=== PATIENT | female | born 1995 | race Caucasian/White ===

== ENCOUNTER 2020-04-29 10:07 | Outpatient (CLI) | payer BC, MEDICAID, SELFPAY ==
[2020-04-29 11:41] LABS: Total Protein 24 Hour Urine 159.2 mg/24HR (0-150); Total Volume, Urine 3184 mL
--- NOTE | 2020-04-30 08:22 | PC.NURSE ---
LAB RESULTS GIVEN TO DR. CHANEL.
== END 2020-04-29 10:08 | disposition home or self-care (01) ==
LOC: LAB 10:11
PROVIDERS: Visit Provider Family Medicine
DX: I10 Essential (primary) hypertension (principal)
CPT/HCPCS: 84156

== ENCOUNTER 2020-05-05 07:38 | Outpatient (CLI) | payer BC, MEDICAID, SELFPAY ==
[2020-05-05 07:48] VITALS: BP 135/69; PULSE 105
[2020-05-05 07:50] VITALS: RESP 17; TEMP 36.6
[2020-05-05 07:51] VITALS: BMI 38.2
[2020-05-05 07:58] VITALS: BP 127/66; PULSE 104
[2020-05-05 08:09] VITALS: BP 118/61; PULSE 107
[2020-05-05 08:19] VITALS: BP 119/66; PULSE 101
[2020-05-05 08:25] VITALS: BP 119/66; PULSE 101
== END 2020-05-05 08:25 | disposition home or self-care (01) ==
LOC: OPOB 07:41 → OBGYN 07:42
PROVIDERS: Visit Provider Family Medicine
DX: O13.9 Gestational [pregnancy-induced] hypertension without significant proteinuria, unspecified trimester (principal); Z3A.00 Weeks of gestation of pregnancy not specified
CPT/HCPCS: 59025; 99211

== ENCOUNTER 2020-05-09 07:18 | Outpatient (CLI) | payer BC, MEDICAID, SELFPAY ==
[2020-05-09] VITALS (10 sets, daily range): BP systolic 119–134; BP diastolic 57–76; PULSE 86–107; RESP 17; TEMP 36.7; BMI 38.2
--- NOTE | 2020-05-09 07:39 | US_ITS ---
WS: [id number] BIOPHYSICAL PROFILE AND LIMITED OB. HISTORY: BPP and SANDY, gestational hypertension COMPARISON: 04/27/2019 Presentation: Vertex. Cervix: Closed and normal length. Placenta: Anterior, no previa or abruption. Grade: 1 HEART: FHR of 131BPM. Biophysical profile: Parameters are as follows: Breathin Movement: 2 Tone: 2 Fluid volume: 2 Amniotic fluid index: 20.5 cm. Largest vertical pocket 6.6 cm. 1. Biophysical profile score: 8/8. 2. Normal amniotic fluid index. US/US OB F/U w BPP wo NST IMPRESSION:
== END 2020-05-09 08:50 | disposition home or self-care (01) ==
LOC: OPOB 07:22 → OBGYN 07:23
PROVIDERS: Visit Provider Family Medicine
DX: O13.9 Gestational [pregnancy-induced] hypertension without significant proteinuria, unspecified trimester (principal); Z3A.00 Weeks of gestation of pregnancy not specified
CPT/HCPCS: 59025; 76816; 76819; 99211

== ENCOUNTER 2020-05-12 08:05 | Outpatient (CLI) | payer BC, MEDICAID, SELFPAY ==
[2020-05-12 08:49] VITALS: BMI 38.5
== END 2020-05-12 08:45 | disposition home or self-care (01) ==
LOC: OPOB 08:12 → OBGYN 08:13
PROVIDERS: Visit Provider Family Medicine
DX: O13.9 Gestational [pregnancy-induced] hypertension without significant proteinuria, unspecified trimester (principal); Z3A.00 Weeks of gestation of pregnancy not specified
CPT/HCPCS: 59025; 99211

== ENCOUNTER 2020-05-16 08:00 | Outpatient (CLI) | payer BC, MEDICAID, SELFPAY ==
--- NOTE | 2020-05-16 08:19 | US_ITS ---
WS: [id number] ULTRASOUND OB LIMITED TECHNIQUE: Limited ultrasound examination of the fetus. CLINICAL INFORMATION: PRIOR ; ELEVATED BLOOD PRESSURE COMPARISON: May 09, 2020 FINDINGS: Cervix measures 4.3 cm Single interuterine gestation. presentation is vertex Placental location is anterior. Placenta grade: 0. heart rate 138 BPM. Normal SANDY Biophysical profile 8 out of 8. breathin movement: 2 tone: 2 Amniotic fluid: 2 IMPRESSION Normal biophysical profile 8 out of 8
[2020-05-16 08:21] VITALS: BMI 38.0
[2020-05-16 08:59] VITALS: BP 123/69; BP 124/68; BP 140/84; PULSE 104; PULSE 112; PULSE 96
--- NOTE | 2020-05-16 09:02 | PC.NURSE ---
VITALS PT ACCOUNT WAS NOT LINKED WITH [facility] SO VITALS JUST SHOWING THEY WERE ALL AT THE SAME TIME VITALS STARTED AT 0816 140/84 THRU CURRENT B/P OF 124/68 AT 0850.
[2020-05-16 09:05] VITALS: BP 113/57; PULSE 104
--- NOTE | 2020-05-16 09:17 | PC.NURSE ---
CONCERNING LAST NOTE SYSTEM NOW CORRECT WITH TIMES.
[2020-05-16 09:20] VITALS: BP 116/62; PULSE 102
[2020-05-16 09:35] VITALS: BP 118/59; PULSE 101
[2020-05-16] MEDS: betamethasone susp 6 mg/mL 5 mL 12 MG IM (09:56)
[2020-05-16 10:36] VITALS: BP 118/59; PULSE 101; RESP 16
== END 2020-05-16 09:50 | disposition home or self-care (01) ==
LOC: OPOB 08:09 → OBGYN 08:10
PROVIDERS: Visit Provider Family Medicine
DX: O26.899 Other specified pregnancy related conditions, unspecified trimester (principal); Z3A.00 Weeks of gestation of pregnancy not specified; R10.9 Unspecified abdominal pain
CPT/HCPCS: 59025; 76819; 96372; 99211; J0702

== ENCOUNTER 2020-05-17 09:49 | Outpatient (CLI) | payer BC, MEDICAID, SELFPAY ==
[2020-05-17 10:13] VITALS: BP 125/79; PULSE 93; RESP 16; TEMP 36.4; BMI 38.0
[2020-05-17 10:14] VITALS: BP 125/79; PULSE 93
[2020-05-17 10:26] VITALS: BP 116/66; PULSE 100
[2020-05-17 10:41] VITALS: BP 121/78; PULSE 102
[2020-05-17] MEDS: betamethasone susp 6 mg/mL 5 mL 12 MG IM (10:47)
[2020-05-17 11:15] VITALS: BP 121/78; PULSE 102; RESP 16; TEMP 36.4
== END 2020-05-17 10:50 | disposition home or self-care (01) ==
LOC: OPOB 10:00 → OBGYN 05-18 08:12
PROVIDERS: Visit Provider Family Medicine
DX: O26.899 Other specified pregnancy related conditions, unspecified trimester (principal); Z3A.00 Weeks of gestation of pregnancy not specified
CPT/HCPCS: 59025; 96372; 99211; J0702

== ENCOUNTER 2020-05-19 09:00 | Outpatient (CLI) | payer BC, MEDICAID, SELFPAY ==
[2020-05-19] VITALS (12 sets, daily range): BP systolic 102–147; BP diastolic 51–81; PULSE 87–107; RESP 16; TEMP 36.6; BMI 38.2
[2020-05-19 09:36] LABS: Basophils % 0.2 %; Eosinophils % 0.3 %; Hematocrit 37.1 % (37.0-47.0); Hemoglobin 11.7 g/dL (11.5-15.3); Lymphocytes # 2.3 10^3/uL (0.8-4.8); Lymphocytes % 19.2 %; Mean Corpuscular HGB Conc 31.5 g/dL (30.0-36.0); Mean Corpuscular Hemoglobin 28.7 pg (28.0-34.0); Mean Corpuscular Volume 90.9 fL (81-99); Monocytes # 0.6 10^3/uL (0.2-0.9); Monocytes % 4.7 %; Neutrophils # 8.95 10^3/uL (1.8-7.7); Neutrophils % 74.6 %; Nucleated Red Blood Cells % 0 %; Platelet Count 230 10^3/cmm (130-400); Red Blood Count 4.08 10^6/uL (4.1-5.3); Red Cell Distribution Width 13.9 % (12.1-15.1)
[2020-05-19 09:55] LABS: Alanine Aminotransferase 30 U/L (0-33); Albumin Level 3.7 g/dL (3.5-5.2); Alkaline Phosphatase 80 IU/L (35-105); Aspartate Amino Transferase 20 U/L (0-32); Blood Urea Nitrogen 6 mg/dL (6-20); Calcium 8.3 mg/dL (8.5-10.5); Carbon Dioxide 20 mmol/L (22-29); Chloride 103 mmol/L (98-107); Glomerular Filtration Rate 199.6 mL/min (90-130); Glucose 138 mg/dL (65-115); Osmolality Calculated 280 mOsm/kg (285-295); Sodium 136 mmol/L (136-145); Total Bilirubin 0.2 mg/dL (0.15-1.2); Total Protein 6.7 g/dL (6.6-8.7); Uric Acid 3.4 mg/dL (2.4-5.7)
[2020-05-19 09:56] LABS: Anion Gap 16.7 (5-19); Potassium 3.7 mmol/L (3.5-5.1)
== END 2020-05-19 12:05 | disposition home or self-care (01) ==
LOC: OPOB 09:08 → OBGYN 09:09
PROVIDERS: Visit Provider Family Medicine
DX: O26.899 Other specified pregnancy related conditions, unspecified trimester (principal); Z3A.00 Weeks of gestation of pregnancy not specified; O16.9 Unspecified maternal hypertension, unspecified trimester
CPT/HCPCS: 36415; 59025; 80053; 84550; 85025; 99211

== ENCOUNTER 2020-05-23 08:11 | Outpatient (CLI) | payer BC, MEDICAID, SELFPAY ==
--- NOTE | 2020-05-23 08:23 | US_ITS ---
NOTE: Report was unsigned for reason: Order was edited. Original Signature date and time was: 05/23/2020 0917 WS: [id number] BIOPHYSICAL PROFILE AMNIOTIC FLUID HISTORY: Umbilical artery doppler, blood flow COMPARISON: 05/16/2020 Cardiac activity: 141 bpm. Cervix: closed. Placenta: Anterior, no previa. Placenta grade: 2 Parameters are as follows: Breathin Movement: 2 Tone: 2 Fluid volume: 2 UMBILICAL ARTERY DOPPLER Sampling was performed at the placental insertion, insertion and free- floating loops. At the umbilical insertion site the SD ratio was 2.3 with a resistivity index of 0.56. Waveform analysis at multiple sites: Normal systolic and diastolic velocities. Diastolic velocity remains above the baseline. Normal upstroke of waveform. SD ratios: SD ratios range from 2.1-2.6. Mean of 2.29. Resistivity indices: 0.52 -0.61. Mean of 0.56 [facility] US/US OB BPP wo NST [id number] IMPRESSION: 1. Biophysical profile score: 8/8. 2. Normal umbilical artery Doppler. SD ratio and waveforms are normal.
[2020-05-23 08:24] VITALS: RESP 18; TEMP 36.8
[2020-05-23 08:26] VITALS: BMI 38.8
[2020-05-23 09:21] VITALS: BP 127/62; PULSE 94
[2020-05-23 09:40] VITALS: BP 141/62; PULSE 88; PULSE 98; RESP 18
== END 2020-05-23 10:00 | disposition home or self-care (01) ==
LOC: OPOB 08:12 → OBGYN 08:13
PROVIDERS: Visit Provider Family Medicine
DX: O26.899 Other specified pregnancy related conditions, unspecified trimester (principal); R10.9 Unspecified abdominal pain; Z3A.00 Weeks of gestation of pregnancy not specified
CPT/HCPCS: 59025; 76819; 76820

== ENCOUNTER 2020-05-26 07:25 | Outpatient (CLI) | payer MEDICAID, SELFPAY ==
--- NOTE | 2020-05-26 07:46 | US_ITS ---
WS: [id number] BIOPHYSICAL PROFILE HISTORY: well-being, HISTORY OF LOSS COMPARISON: 05/23/2020 Cardiac activity: 133 bpm. Cervix: closed. Placenta: Anterior, no previa or abruption. Placenta grade: 1 Parameters are as follows: Breathin Movement: 2 Tone: 2 Fluid volume: 2 Largest single vertical pocket of amniotic fluid is 3.1 cm. US/US OB BPP wo NST [id number] IMPRESSION: 1. Biophysical profile score: 8/8. 2. Normal cardiac activity.
[2020-05-26 08:00] VITALS: BMI 36.8
[2020-05-26 08:10] VITALS: BP 126/66; PULSE 100; RESP 18
== END 2020-05-26 07:26 | disposition home or self-care (01) ==
LOC: OPOB 07:44
PROVIDERS: Visit Provider Family Medicine
DX: O26.899 Other specified pregnancy related conditions, unspecified trimester (principal); Z3A.00 Weeks of gestation of pregnancy not specified; R10.9 Unspecified abdominal pain
CPT/HCPCS: 59025; 76819; 99211

== ENCOUNTER 2020-05-30 10:00 | Observation (INO) | payer MEDICAID, SELFPAY ==
[2020-05-30] VITALS (28 sets, daily range): BP systolic 0–123; BP diastolic 0–70; PULSE 88–112; RESP 16; TEMP 36.6–36.8; BMI 38.8
--- NOTE | 2020-05-30 08:18 | US_ITS ---
WS: [id number] ULTRASOUND OB LIMITED TECHNIQUE: Limited ultrasound examination of the fetus. CLINICAL INFORMATION: HISTORY OF COMPARISON: May 26, 2020 FINDINGS: Cervix measures 4.5 cm Single interuterine gestation. presentation is vertex Placental location is anterior. Placenta grade: 0. heart rate 144 BPM. Normal SANDY 19.1 cm UMBILICAL ARTERY DOPPLER Sampling was performed at the placental insertion, insertion and free- floating loops. Normal umbilical artery velocities at the placental and mid artery. Systolic/diastolic ratio at the c ord insertion. Increased S/D ratio and RI since May 23, 2020 at the cord insertion. S/D ratio ranges from 2.2-3.5 RI ranges from 0.5 -0.7 Biophysical profile 8 out of 8. breathin movement: 2 tone: 2 Amniotic fluid: 2 IMPRESSION 1. Normal biophysical profile 8 out of 8 2. Normal SANDY. 3. Normal umbilical artery velocities at the placental and mid artery. 4. Increased RI and systolic/diastolic ratio at the cord insertion. This is increased slightly since May 23, 2020. This can be seen with growth restricted fetuses and early indicators of di stress. Recommend clinical correlation and short interval follow-up.
[2020-05-30 11:02] LABS: Basophils % 0.1 %; Eosinophils # 0.1 10^3/uL (0.0-0.8); Eosinophils % 0.6 %; Hematocrit 37.7 % (37.0-47.0); Hemoglobin 11.9 g/dL (11.5-15.3); Lymphocytes # 1.8 10^3/uL (0.8-4.8); Lymphocytes % 18.6 %; Mean Corpuscular HGB Conc 31.6 g/dL (30.0-36.0); Mean Corpuscular Hemoglobin 28.5 pg (28.0-34.0); Mean Corpuscular Volume 90.2 fL (81-99); Mean Platelet Volume 9.7 fL (7.4-10.4); Monocytes # 0.6 10^3/uL (0.2-0.9); Monocytes % 5.6 %; Neutrophils # 7.28 10^3/uL (1.8-7.7); Neutrophils % 74.6 %; Nucleated Red Blood Cells % 0 %; Platelet Count 201 10^3/cmm (130-400); Red Blood Count 4.18 10^6/uL (4.1-5.3); Red Cell Distribution Width 14.2 % (12.1-15.1); White Blood Count 9.8 10^3/uL (4.0-10.0)
[2020-05-30 11:21] LABS: Alanine Aminotransferase 11 U/L (0-33); Albumin Level 3.5 g/dL (3.5-5.2); Alkaline Phosphatase 94 IU/L (35-105); Anion Gap 13.9 (5-19); Aspartate Amino Transferase 13 U/L (0-32); Blood Urea Nitrogen 4 mg/dL (6-20); Calcium 8.9 mg/dL (8.5-10.5); Carbon Dioxide 21 mmol/L (22-29); Chloride 105 mmol/L (98-107); Globulin 2.9 g/dL (1.3-4.6); Glomerular Filtration Rate 199.6 mL/min (90-130); Glucose 84 mg/dL (65-115); Osmolality Calculated 277 mOsm/kg (285-295); Potassium 3.9 mmol/L (3.5-5.1); Sodium 136 mmol/L (136-145); Total Bilirubin 0.2 mg/dL (0.15-1.2); Total Protein 6.4 g/dL (6.6-8.7); Uric Acid 3.7 mg/dL (2.4-5.7)
--- NOTE | 2020-05-30 19:30 | PC.NURSE ---
Dr. Hurd at nurses station, strip reviewed, orders reviewed. orders for continuous monitoring throughout the night, BP every hour and all other vitals every 4 hours.
--- NOTE | 2020-05-30 19:56 | PC.NURSE ---
Dr. Hurd performing physical exam at this time
--- NOTE | 2020-05-30 20:07 | PM.HP ---
Providers/Chief Complaint Admitting Physician: Miguel Hurd MD Chief Complaint: gestational hypertension History of Present Illness Brigida aSles is a 24 year old at 34.4 weeks gestation by LMP consistent with 9-week ultrasound. Her is complicated by history of preeclampsia with severe features at 33 and 36 weeks gestation and prior pregnancies, chronic hypertension, history of IUFD at 33.3 weeks gestation, now with gestational hypertension. The patient has been followed by perinatology at [facility]. The patient is getting twice weekly NSTs with biophysical profile, SANDY and umbilical artery flow measurements. The patient has been having headaches that she rates a 3 out of 10 for the last 3 to 4 weeks. She has been seeing spots intermittently. The patient has brought these up to maternal- medicine in [place] and they recommended follow-up with them in 3 weeks. I have been seeing the patient in clinic twice a week and her symptoms seem to gradually be getting worse with increased swelling, brisk reflexes and more frequent symptoms. Her blood pressures are currently stable but have been getting into the 120/100 range at home and 140s over 80s range at different measurements. The patient had her ultrasound and NST done today and had a reactive NST with a biophysical profile of 8 out of 8 and SANDY of 19. Unfortunately the umbilical artery SD ratio is increasing and increased from 2.6 to 3.5 and the index increased from 0.61 to 0.7 over the last week. Because of this the patient will be admitted for further monitoring. Review of Systems Narrative: The patient currently denies any chest pains, shortness of breath, nausea, vomiting, diarrhea, constipation, fever. She admits to headache, seeing flashes of lights, swelling. Medications/Allergies Home Medications Medication Instructions Recorded Confirmed Last Taken Type aspirin 81 mg PO DAILY 05/05/20 05/30/20 05/29/20 20:00 History vit [id number] 1 tab PO DAILY 05/05/20 05/30/20 05/29/20 20:00 History [ Vitamin] labetalol 50 mg PO DAILY 05/09/20 05/12/20 05/07/20 09:00 History Allergies Allergy/AdvReac Type Severity Reaction Status Date / Time No Known Allergies Allergy Verified 05/17/20 10:21 PFSH Acute PFSH: Medical History (Updated 09/08/20 @ 20:20 by Miguel Hurd MD) History of stillbirth Surgical History (Updated 05/30/20 @ 20:20 by Miguel Hurd MD) History of appendectomy History of tonsillectomy and adenoidectomy Hx of cholecystectomy Previous section Female Reproductive History: : 3 Vitals/I&O/Wt Last Vital Signs Temp 98.2 F 05/30/20 10:12 Pulse 112 H 05/30/20 19:36 BP 118/70 05/30/20 19:36 Weight last 48 hrs Weight 199 lb Physical Exam Narrative: EXAM NARRATIVE: General: Alert and oriented x3 Eyes: Pupils equal round and reactive to light and accommodation Mouth: Mucous membranes moist, pharynx non-erythematous Cardiac: Regular rate and rhythm without murmurs Lungs: Clear to auscultation bilaterally without wheezes, crackles or rhonchi Abdomen: Soft, non-tender, fundus consistent with gestational age Extremities: Trace edema in the bilateral lower extremities Neuro: Brisk bilateral deep tendon reflexes at the knee Data : 05/30/20 10:44 05/30/20 10:44 A&P Assessment and plan (1) Gestational hypertension: Status: Acute (2) Intrauterine : Status: Acute Additional A&P Information The patient is currently under observation secondary to a high SD ratio and resistive index in the umbilical artery blood flow that is increased from her prior ultrasound 1 week ago. This is concerning for an increased risk to the and the patient will be observed with monitoring overnight. We will also watch the patient's blood pressure throughout the evening as well. We will recheck the ultrasound in the morning to see if the indices are staying similar to today's evaluation. If they are, we may have to consider transfer to [place] versus inpatient monitoring until delivery. If the blood flow has absent diastolic flow or reverse diastolic flow, then delivery will need to take place right away. The patient did drop off a 24-hour urine protein at our office earlier today and we will get the results tomorrow evening. Her last 24-hour urine protein was 1 week ago and was 180. I spoke with the patient regarding the above and she is in agreement with the current plan of care. All questions were answered. Attestations Medical Necessity Statement*: The patient is currently here under observation for the above issues. Depending on further testing we will see if her status needs to be changed inpatient or not. Coding Level of Care Code Acute Software Quality Assurance Analyst for Chg Fwd Diagnoses Gestational hypertension O13.9 Intrauterine Z34.90
[2020-05-31] VITALS (14 sets, daily range): BP systolic 0–134; BP diastolic 0–72; PULSE 85–109; RESP 15–16; TEMP 36.6–36.9
[2020-05-31 03:46] LABS: Coronavirus Lab Test PTC Negative
--- NOTE | 2020-05-31 06:20 | PC.NURSE ---
oxygen therapy technician at bedside, monitors disconnected.
--- NOTE | 2020-05-31 07:00 | US_ITS ---
WS: [id number] ULTRASOUND OB LIMITED TECHNIQUE: Limited ultrasound examination of the fetus. CLINICAL INFORMATION: Elevated umbilical artery index COMPARISON: May 30, 2020 FINDINGS: Cervix not well visualized Single interuterine gestation. presentation is vertex Placental location is anterior. Placenta grade: 0. heart rate 129 BPM. Normal SANDY Biophysical profile 8 out of 8. breathin movement: 2 tone: 2 Amniotic fluid: 2 Umbilical artery systolic/diastolic ratio at placenta 2.1 and 2.0. Mid cord 2.2 and 2.13 Cord insertion 2.2 and 2.8 IMPRESSION 1. Normal biophysical profile 8 out of 8 2. Improved umbilical artery indices compared to earlier today
--- NOTE | 2020-05-31 08:46 | PM.DCS ---
Discharge Providers Date of Admission: 05/30/20 10:00 Date of Discharge: May 31, 2020 Attending Provider at Admission: Miguel Hurd MD Attending Provider at Discharge: Miguel Hurd MD Primary Care Provider: DOCTOR NOT ON FILE Diagnoses at Discharge Discharge Diagnosis (1) Gestational hypertension: Status: Acute (2) Intrauterine : Status: Acute Reason for Visit Reason for Visit: gestational hypertension Hospital Course Hospital Course: Brigida Sales is a 24 year old at 34.5 weeks gestation by LMP consistent with 9-week ultrasound. Her is complicated by history of preeclampsia with severe features at 33 and 36 weeks gestation and prior pregnancies, chronic hypertension, history of IUFD at 33.3 weeks gestation, now with gestational hypertension and borderline SD ratio. The patient has been followed by perinatology at [facility]. The patient is getting twice weekly NSTs with biophysical profile, SANDY and umbilical artery flow measurements. The patient has been having headaches that she rates a 3 out of 10 for the last 3 to 4 weeks. She has been seeing spots intermittently. The patient has brought these up to maternal- medicine in [place] and they recommended follow-up with them in 3 weeks. I have been seeing the patient in clinic twice a week and her symptoms seem to gradually be getting worse with increased swelling, brisk reflexes and more frequent symptoms. Her blood pressures are currently stable but have been getting into the 120/100 range at home and 140s over 80s range at different measurements. The patient had her ultrasound and NST done today and had a reactive NST with a biophysical profile of 8 out of 8 and SANDY of 19. Unfortunately the umbilical artery SD ratio is increasing and increased from 2.6 to 3.5 and the index increased from 0.61 to 0.7 over the last week. Because of this the patient will be admitted for further monitoring. The patient's blood pressure throughout her stay was in the normal range with an occasional blood pressure in 140/80 range. The patient is currently no longer seeing spots. Her headache is stable at 3 out of 10. The patient had a repeat ultrasound of the umbilical artery and the SD ratio has improved as has the resistive index. I had a lengthy discussion with the patient that she needs to be on bedrest at home and we will have her return for a repeat ultrasound tomorrow and Friday. If the SD ratio a resistive index is going up above 3 again, we may need to consider readmitting the patient. I given the patient the option of staying for the next few days to monitor versus daily ultrasounds and she prefers to go home since the blood pressures and heart tones have look good. All questions were answered. Physical Exam Narrative: EXAM NARRATIVE: General: Alert and oriented x3 Eyes: Pupils equal round and reactive to light and accommodation Mouth: Mucous membranes moist, pharynx non-erythematous Cardiac: Regular rate and rhythm without murmurs Lungs: Clear to auscultation bilaterally without wheezes, crackles or rhonchi Abdomen: Soft, non-tender, fundus consistent with gestational age Extremities: Trace edema in the bilateral lower extremities Neuro: Brisk bilateral deep tendon reflexes at the knee Discharge Data Data Completed and Pending: Completed Studies During Hospitalization Category Date Time Status US OB lm w fetalB PP woNST &umb Rout ine Ultrasound 05/31/20 07:00 Completed US OB lm w fetalB PP woNST &umb Urge nt Ultrasound 05/30/20 08:18 Completed Labs from last 24 hours 05/30/20 05/30/20 05/30/20 11:05 10:44 10:44 WBC 9.8 RBC 4.18 Hgb 11.9 Hct 37.7 MCV 90.2 MCH 28.5 MCHC 31.6 RDW 14.2 Plt Count 201 MPV 9.7 Neut % (Auto) 74.6 Lymph % (Auto) 18.6 Starke % (Auto) 5.6 Eos % (Auto) 0.6 Baso % (Auto) 0.1 Neut # (Auto) 7.28 Lymph # (Auto) 1.8 Starke # (Auto) 0.6 Eos # (Auto) 0.1 Baso # (Auto) 0.0 Nucleated RBC % (a uto) 0 Nucleated RBCs # 0.0 Sodium 136 Potassium 3.9 Chloride 105 Carbon Dioxide 21 L Anion Gap 13.9 BUN 4 L Creatinine 0.4 L GFR Calculation 199.6 H Glucose 84 Calculated Osmolal ity 277 L Uric Acid 3.7 Calcium 8.9 Total Bilirubin 0.2 AST 13 ALT 11 Alkaline Phosphata se 94 Total Protein 6.4 L Albumin 3.5 Globulin 2.9 Nasal/Oral COVID-1 9 PCR Negative Vitals: Last Vital Signs Temp 97.9 F 05/31/20 07:20 Pulse 109 H 05/31/20 08:18 Resp 16 05/31/20 07:20 BP 114/57 05/31/20 08:18 Discharge Plan Discharge Patient Disposition: Home Condition: Stable Prescriptions: Continued aspirin 81 mg Tablet,Delayed Release (Dr/Ec) 81 mg PO DAILY RF: 0 Vitamin 27 mg iron- 800 mcg Tablet 1 tab PO DAILY RF: 0 Discontinued labetalol 100 mg Tablet 50 mg PO DAILY RF: 0 Discharge Orders: Discharge Order (Routine); Ordered 05/31/20 Ordered By: Miguel Hurd Referrals: Miguel Hurd MD [Physician] - 06/02/20 (As scheduled) Discharge Diet: Regular Discharge Activity: Limit activity as instructed and Bedrest Activity Restrictions/Additional Instructions: If you have any concern that the baby is not moving like they should be or have any other concerns regarding , please return to OB right away. Print Language: Mongolian Discharge Date/Time: 05/31/20 09:24 Discharge Attestations Time Spent in Discharge Care*: greater than 30 min Quality Metrics Clinical Quality Measures During this hospital stay, did patient experience: None Coding Level of Care Code Acute Rehab Rn for Chg Fwd Diagnoses Gestational hypertension O13.9 Intrauterine Z34.90
== END 2020-05-31 09:24 | disposition home or self-care (01) ==
LOC: OBGYN 05-31 08:06 → OPOB 05-31 08:31
PROVIDERS: Admitting Provider Family Medicine; Visit Provider Family Medicine
DX: O13.9 Gestational [pregnancy-induced] hypertension without significant proteinuria, unspecified trimester (principal); Z3A.00 Weeks of gestation of pregnancy not specified
CPT/HCPCS: 12345; 59025; 76815; 76819; 76820; 80053; 84550; 85025; 87635; 99211; G0378

== ENCOUNTER 2020-06-01 07:59 | Outpatient (CLI) | payer MEDICAID, SELFPAY ==
--- NOTE | 2020-06-01 08:07 | US_ITS ---
WS: [id number] OB ultrasound for biophysical profile, 06/01/2020 Clinical Data: Gestational Hypertension Comparison: OB ultrasound, 05/31/2020 Findings: There is a single intrauterine in the vertex presentation. The heart rate is 133 beat s per minute. The cervical length is 5.04 cm and it is closed. The placenta is anterior. The biophysical profile is 8 of 8 with normal scores for breathing, movement, posture and tone and amniotic fluid volume. The umbilical Doppler SD ratio is 2.76 at the placenta, 2.57 at the mid cord, and 2.46 at the cord in sertion. US/US OB lm w fetalBPP woNST &umb Impression: 1. Single intrauterine in vertex presentation. 2. Biophysical profile 8 of 8. 3. heart rate 133 beats per minute.
[2020-06-01 08:09] VITALS: BMI 38.8
--- NOTE | 2020-06-01 09:05 | PC.NURSE ---
THIS GOLD LEAF LAYER WAS TOLD THAT SHE DID NOT HAVE TO GET NST OR BLOOD PRESSURES AT THIS VISIT.
== END 2020-06-01 09:00 | disposition home or self-care (01) ==
LOC: OPOB 08:06
PROVIDERS: Visit Provider Family Medicine
DX: O16.9 Unspecified maternal hypertension, unspecified trimester (principal); Z3A.00 Weeks of gestation of pregnancy not specified
CPT/HCPCS: 76815; 76819; 76820; 99211

== ENCOUNTER 2020-06-02 07:17 | Outpatient (CLI) | payer MEDICAID, SELFPAY ==
[2020-06-02 07:20] VITALS: RESP 16; TEMP 37
--- NOTE | 2020-06-02 07:20 | US_ITS ---
WS: [id number] OB ultrasound for biophysical profile, 06/02/2020 Clinical Data: Gestational Hypertension Comparison: OB ultrasound, 06/01/2020 Findings: There is a single intrauterine in the vertex presentation. The heart rate is 133 beat s per minute. The cervical length is long and it is closed. The placenta is anterior and grade 2. The biophysical profile is 8 of 8 with normal scores for breathing, movement, posture and tone and amniotic fluid volume. US/US OB lm w fetalBPP woNST &umb Impression: 1. Single intrauterine in vertex presentation. 2. Biophysical profile 8 of 8. 3. heart rate 133 beats per minute.
[2020-06-02 07:26] VITALS: BP 129/70; PULSE 98
[2020-06-02 07:29] VITALS: BMI 38.8
[2020-06-02 07:42] VITALS: BP 144/66; PULSE 90
[2020-06-02 07:57] VITALS: BP 138/55; PULSE 100
[2020-06-02 08:13] VITALS: BP 126/58; PULSE 91
[2020-06-02 08:28] VITALS: BP 109/66; PULSE 90
== END 2020-06-02 08:42 | disposition home or self-care (01) ==
LOC: OPOB 07:18 → OBGYN 07:19
PROVIDERS: Visit Provider Family Medicine
DX: O16.9 Unspecified maternal hypertension, unspecified trimester (principal); Z3A.00 Weeks of gestation of pregnancy not specified
CPT/HCPCS: 76815; 76819; 76820

== ENCOUNTER 2020-06-04 11:20 | Inpatient (IN) | payer MEDICAID, SELFPAY ==
[2020-06-03] VITALS (15 sets, daily range): BP systolic 100–152; BP diastolic 56–83; PULSE 74–101; RESP 16–20; TEMP 36.6–36.7; O2SAT 97; BMI 39.1
--- NOTE | 2020-06-03 15:35 | USR_ITS ---
PROCEDURE INFORMATION: Exam: US , Limited Exam date and time: 06/03/2020 4:18 PM Age: 24 years old Clinical indication: Condition or disease; Lmp or gestational age (weeks): 35 wks 1 day; Other: History of gestational hypertension, severe pre-eclampsia, demise; 3rd ; ; Additional info: History of gestational hypertension, severe pre-e, dem TECHNIQUE: Imaging protocol: Real-time ultrasound of the maternal uterus with image documentation. Exam focused on the clinical indication. COMPARISON: US OB lm w fetalBPP woNST umb 06/02/2020 7:44 AM FINDINGS: Gestation: Single intrauterine gestation. heart rate: 124 bpm. Presentation: Cephalic. Amniotic fluid: Subjectively normal. MATERNAL: Cervix: Cervical length 4.7 cm. Other findings: S/D ratio: 2.4 and umbilical insertion, 2.2 mid aspect, 3.4-3.8 at the insertion. US/US OB F/U with umb art IMPRESSION: 1. Single living intrauterine gestation. 2. S/D ratios range from 2.2-3.8.
[2020-06-03 19:13] LABS: Basophils % 0.1 %; Eosinophils # 0.1 10^3/uL (0.0-0.8); Eosinophils % 0.9 %; Hematocrit 40.5 % (37.0-47.0); Hemoglobin 12.9 g/dL (11.5-15.3); Lymphocytes # 2.3 10^3/uL (0.8-4.8); Lymphocytes % 22.7 %; Mean Corpuscular HGB Conc 31.9 g/dL (30.0-36.0); Mean Corpuscular Hemoglobin 28.9 pg (28.0-34.0); Mean Corpuscular Volume 90.8 fL (81-99); Mean Platelet Volume 9.8 fL (7.4-10.4); Monocytes # 0.6 10^3/uL (0.2-0.9); Monocytes % 6.2 %; Neutrophils # 7.03 10^3/uL (1.8-7.7); Neutrophils % 69.6 %; Nucleated Red Blood Cells % 0 %; Platelet Count 189 10^3/cmm (130-400); Red Blood Count 4.46 10^6/uL (4.1-5.3); Red Cell Distribution Width 14.5 % (12.1-15.1); White Blood Count 10.1 10^3/uL (4.0-10.0)
--- NOTE | 2020-06-03 19:29 | PM.HP ---
Providers/Chief Complaint Chief Complaint: NST History of Present Illness Brigida Sales is a 24 year old at 35.1 weeks gestation by LMP consistent with 9-week ultrasound. Her is complicated by history of preeclampsia with severe features at 33 and 36 weeks gestation and prior pregnancies, chronic hypertension, history of IUFD at 33.3 weeks gestation, now with gestational hypertension and elevated S/D ratio and RI in the umbilical artery. The patient has been continuing to have mild headaches and she is seeing spots slightly more than she was previously. The patient has been getting daily umbilical artery ultrasounds and the SD ratio and resistive index were significantly higher today at 3.8 and .74 respectively at the insertion of the umbilicus at the abdomen. Because of this the patient will be admitted for further observation. Patient denies any fevers, cough, nasal congestion, leakage of fluid, vaginal bleeding, contractions, shortness of breath. Medications/Allergies Home Medications Medication Instructions Recorded Confirmed Last Taken Type Vitamin 1 tab PO DAILY 05/05/20 06/03/20 06/01/20 21:00 History 1 tab aspirin 81 mg PO DAILY 05/05/20 06/03/20 06/01/20 21:00 History 81 mg Allergies Allergy/AdvReac Type Severity Reaction Status Date / Time No Known Allergies Allergy Verified 06/03/20 17:39 PFSH Acute PFSH: Medical History History of stillbirth Surgical History History of appendectomy History of tonsillectomy and adenoidectomy Hx of cholecystectomy Previous section Female Reproductive History: : 3 Vitals/I&O/Wt Last Vital Signs Pulse 80 06/03/20 18:28 BP 125/66 06/03/20 18:28 Weight last 48 hrs Weight 200 lb 8 oz Physical Exam Narrative: EXAM NARRATIVE: General: Alert and oriented x3 Eyes: Pupils equal round and reactive to light and accommodation Mouth: Mucous membranes moist, pharynx non-erythematous Cardiac: Regular rate and rhythm without murmurs Lungs: Clear to auscultation bilaterally without wheezes, crackles or rhonchi Abdomen: Soft, non-tender, fundus consistent with gestational age Extremities: +1 pitting edema in the bilateral lower extremities. Brisk reflexes present. Data : 06/03/20 18:40 06/03/20 18:40 A&P Additional A&P Information The patient has been admitted for observation secondary to worsening resistive index and ST ratios on the umbilical artery duplex scan. The concern is that the patient has elevated blood pressures that are occasionally get into the 140s 150s systolic and she is having some intermittent symptoms of severe features. We will continue to monitor her at least overnight and get labs including a CBC, CMP and uric acid as well as a 24-hour urine protein. We will repeat a ultrasound tomorrow morning and certainly if there are signs of reversal of diastolic flow or absence of diastolic flow, we will need to proceed with delivery. We will continue to monitor overnight as possible and watch blood pressures. I discussed the risk of proceeding with delivery versus at this time and all questions were answered. We will plan to continue to follow closely and deliver if further concerns arise. Currently the patient and her are in agreement with the current plan of care. Attestations Medical Necessity Statement*: The patient will be here for observation and will depend on her course whether it her stay crosses more than 2 midnights. Coding Level of Care Code Acute Pilot Safety Inspector for Osiris Wright
[2020-06-03 19:45] LABS: Alanine Aminotransferase 18 U/L (0-33); Albumin Level 3.8 g/dL (3.5-5.2); Alkaline Phosphatase 99 IU/L (35-105); Blood Urea Nitrogen 5 mg/dL (6-20); Carbon Dioxide 21 mmol/L (22-29); Chloride 101 mmol/L (98-107); Globulin 3.5 g/dL (1.3-4.6); Glomerular Filtration Rate 199.6 mL/min (90-130); Glucose 90 mg/dL (65-115); Osmolality Calculated 273 mOsm/kg (285-295); Sodium 134 mmol/L (136-145); Total Bilirubin 0.2 mg/dL (0.15-1.2); Total Protein 7.3 g/dL (6.6-8.7); Uric Acid 3.7 mg/dL (2.4-5.7)
[2020-06-03 20:07] LABS: Aspartate Amino Transferase 25 U/L (0-32)
[2020-06-04] VITALS (29 sets, daily range): BP systolic 101–147; BP diastolic 49–83; PULSE 78–105; RESP 16–18; TEMP 36.7–36.9; O2SAT 95–97
--- NOTE | 2020-06-04 07:00 | USR_ITS ---
PROCEDURE INFORMATION: Exam: US Biophysical Profile Without Non-Stress Test Exam date and time: 06/04/2020 7:29 AM Age: 24 years old Clinical indication: Abnormal findings; Abnormal lab test; Other: Unsure (order says non reassuring labs; Third; ; Prior surgery; Surgery type: TECHNIQUE: Imaging protocol: US biophysical profile without non-stress testing. COMPARISON: US OB F/U with umb art 06/03/2020 4:03 PM FINDINGS: heart rate: 144 bpm. Presentation: presentation is vertex. Placenta: Placenta is anterior Amniotic fluid index: Amniotic fluid index 17.1 cm BIOPHYSICAL PROFILE: Breathin/2 Gross body movements: 2/2 tone: 2/2 Qualitative amniotic fluid: 2/2 Biophysical Profile Score: 04/29 BIOMETRY: Gestational age (AUA): Single live intrauterine gestation with the estimated gestational age of approximately 35 weeks 2 days by last menstrual period. Estimated due date (AUA): Estimated due date 07-07-20 DOPPLER: Umbilical artery Doppler: Umbilical cord systolic diastolic ratio 2.47-3.3 with an average of 3.0. MATERNAL ANATOMY: Cervix: Cervical length 4.5 cm Other findings: Biophysical profile: 04/29. US/US OB BPP wo NST [id number] IMPRESSION: 1. Single live intrauterine gestation with the estimated gestational age of approximately 35 weeks 2 days by last menstrual period. 2. heart rate 144 bpm. . 3. Biophysical profile: 04/29.
--- NOTE | 2020-06-04 11:18 | P.PN_ITS ---
Subjective Subjective: Interval history: The patient continues to have a headache that is mild in nature. The patient has some flashes of light off and on. Overall she feels slightly better than yesterday. The patient's blood pressures have been in the normal range overnight. Vitals/I&O/Wt Last Vital Signs Temp 98.3 F 06/04/20 07:51 Pulse 98 06/04/20 10:35 Resp 18 06/04/20 07:51 BP 117/63 06/04/20 10:35 Pulse Ox 95 06/04/20 07:51 06/03/20 06/04/20 06/04/20 22:59 06:59 14:59 Output Total 450 / 450 450 / 450 Balance -450 / -450 -450 / -450 Weight last 48 hrs Weight 200 lb 8 oz Physical Exam Narrative: EXAM NARRATIVE: General: Alert and oriented x3 Eyes: Pupils equal round and reactive to light and accommodation Mouth: Mucous membranes moist, pharynx non-erythematous Cardiac: Regular rate and rhythm without murmurs Lungs: Clear to auscultation bilaterally without wheezes, crackles or rhonchi Abdomen: Soft, non-tender, fundus consistent with gestational age Extremities: +1 pitting edema in the bilateral lower extremities. Brisk reflexes present. Data : 06/03/20 18:40 06/03/20 18:40 A&P Additional A&P Information The patient continues to have some signs of severe disease in terms of flashes of light and brisk reflexes, however her blood pressures have actually been pretty good throughout her stay so far. She does have a 24-hour urine protein pending. My greatest concern is that the resistive index and SD ratios are still elevated above cutoff for reassurance. Her SD ratio declined from 3.8 to 3.3 but this is still above the cutoff of 3.0 for a reassuring finding. Because of this I would like to continue to monitor her inpatient and repeat the ultrasound tomorrow morning. Overall the patient is stable. I discussed the plan of proceeding with at this time and watching for any signs of complications. If there are complications and we will certainly need to proceed with delivery. The patient and her are in agreement with the current plan of care. Attestations Medical Necessity Statement*: The patient continues to need hospitalization and I suspect that her care will cross more than 2 midnights. She will be changed to inpatient status. Coding Level of Care Code Acute Dust Collector Attendant for Osiris Wright
[2020-06-04 22:23] LABS: Total Protein 24 Hour Urine 145.7 mg/24HR (0-150); Total Volume, Urine 2350 mL; Urine Total Protein 24 Hour 6.2 mg/dL (0-150)
[2020-06-05] VITALS (32 sets, daily range): BP systolic 83–147; BP diastolic 42–84; PULSE 77–102; RESP 16–18; TEMP 36.6–36.9; O2SAT 94–97
--- NOTE | 2020-06-05 | US_ITS ---
WS: [id number] ULTRASOUND OB FOCUSED UMBILICAL ARTERY DOPPLER. HISTORY: Non-reassuring Umbilical Artery flow, h/o demise COMPARISON: 06/04/2020, 06/03/2020 Single intrauterine gestation in cephalic position. Normal amount of surrounding amniotic fluid. Plac enta is anterior and grade 1. heart rate at 150 BPM. UMBILICAL ARTERY DOPPLER Waveform analysis: Normal systolic and diastolic velocities. Diastolic velocity remains above the bas laney. Normal upstroke of waveform. SD ratios: SD ratios range from 2.3-2.8 Resistivity indices: 0.5 to 04 US/[place] velocmetry [place] art [id number] IMPRESSION: 1. Normal SD ratios of the umbilical artery. There is no evidence for reversal of diastolic velocity or absent diastolic velocity. Forward flow is noted thro ughout the cardiac cycle. 2. Normal amniotic fluid. 3. Grade 1 placenta.
--- NOTE | 2020-06-05 07:00 | US_ITS ---
WS: [id number] ULTRASOUND OB FOCUSED UMBILICAL ARTERY DOPPLER. HISTORY: Non-reassuring Umbilical Artery flow, h/o demise COMPARISON: 06/04/2020, 06/03/2020 Single intrauterine gestation in cephalic position. Normal amount of surrounding amniotic fluid. Plac enta is anterior and grade 1. heart rate at 150 BPM. UMBILICAL ARTERY DOPPLER Waveform analysis: Normal systolic and diastolic velocities. Diastolic velocity remains above the bas laney. Normal upstroke of waveform. SD ratios: SD ratios range from 2.3-2.8 Resistivity indices: 0.5 to 04 US/US OB limited [id number] IMPRESSION: 1. Normal SD ratios of the umbilical artery. There is no evidence for reversal of diastolic velocity or absent diastolic velocity. Forward flow is noted thro ughout the cardiac cycle. 2. Normal amniotic fluid. 3. Grade 1 placenta.
--- NOTE | 2020-06-05 08:20 | PC.NURSE ---
US discussed with physician at this time. He stated that he has reached out to perinatologist. No new orders at this time.
--- NOTE | 2020-06-05 09:30 | PC.NURSE ---
Report and patient care handed over to Khalida Treviño RN at this time.
--- NOTE | 2020-06-05 14:44 | PC.NURSE ---
Pt up to BR while this nurse changing bed from another room.
--- NOTE | 2020-06-05 18:18 | PM.PN ---
Subjective Subjective: Interval history: The patient's symptoms seem to be improving and she is only seeing spots a couple times a day instead of constantly. Her headache is stable. The patient denies any chest pains or shortness of breath, leakage of fluid or vaginal bleeding. Vitals/I&O/Wt Last Vital Signs Temp 97.9 F 06/05/20 17:45 Pulse 98 06/05/20 17:51 Resp 17 06/05/20 17:45 BP 144/84 06/05/20 17:51 Pulse Ox 97 06/05/20 13:05 06/05/20 06/05/20 06/05/20 06:59 14:59 22:59 Intake Total 480 / 480 Balance 480 / 480 Physical Exam Narrative: EXAM NARRATIVE: General: Alert and oriented x3 Eyes: Pupils equal round and reactive to light and accommodation Mouth: Mucous membranes moist, pharynx non-erythematous Cardiac: Regular rate and rhythm without murmurs Lungs: Clear to auscultation bilaterally without wheezes, crackles or rhonchi Abdomen: Soft, non-tender, fundus consistent with gestational age Extremities: +1 pitting edema in the bilateral lower extremities. Brisk reflexes present. Data : 06/03/20 18:40 06/03/20 18:40 A&P Additional A&P Information The patient's symptoms are improving since being in the hospital. It seems that when she is home, her symptoms worsen and in the hospital on bedrest she seems to improve. I spoke with perinatology in [facility] regarding the patient's case and discussed the patient's symptoms as well as lab findings and ultrasound findings to ask for guidance. At this point they recommended that with her continuing to improve well on patient but worsening as an outpatient, the inpatient monitoring would be recommended. We will continue to monitor inpatient at this time and certainly if the patient's symptoms begin to worsen in regards to gestational hypertension with severe features or if non-reassuring factors start to display, we will plan for delivery at that time. Perinatology also recommended that reevaluation at 36 weeks could be made for possible delivery depending on the patient's course as well. I spoke with the patient regarding this and although she would prefer to be home, she is in agreement to continue with inpatient on at this time. We will continue with ultrasounds and change NSTs to every 8 hours. Attestations Medical Necessity Statement*: The patient has had nonreassuring monitoring with gestational hypertension and intermittent severe features. She is currently being monitored inpatient due to being . Her stay will continue to cross 2 midnights. Coding Level of Care Code Acute Retail Training Manager for Osiris Wright
[2020-06-06] VITALS (12 sets, daily range): BP systolic 89–137; BP diastolic 45–74; PULSE 78–99; RESP 16; TEMP 36.6–36.8; O2SAT 95–97
--- NOTE | 2020-06-06 07:20 | US_ITS ---
WS: [id number] BIOPHYSICAL PROFILE AND LIMITED OB. UMBILICAL ARTERY DOPPLER EVALUATION. HISTORY: Nonreassuring labs COMPARISON: 06/05/2020, 06/04/2020 and 10/22/2018 Presentation: Vertex. Cervix: Closed and normal length. Placenta: Anterior, no previa or abruption. Grade: 1 HEART: FHR of 147BPM. measurements: BPD = 8.9 cm = 35w6d HC = 32.2 cm = 36w3d AC = 32.3 cm = 36w1d FL = 6.9 cm = 35w1d Normal amount of edema fluid. EFW: 2797g; 70th %. AGA by ultrasound: 35w6d CHASIDY by ultrasound: 07/05/2020 Fetus measuring approximately 2 1/2 weeks smaller in size as compared to the first trimester EDC of . Measurements are internally concordant. Biophysical profile: Parameters are as follows: Breathin Movement: 2 Tone: 2 Fluid volume: 2 UMBILICAL ARTERY DOPPLER Waveform analysis: Normal systolic and diastolic velocities. Diastolic velocity remains above the bas laney. Normal upstroke of waveform. SD ratios: SD ratios range from 1.9-2.4 Resistivity indices: 0.48-0.54 US/US OB BPP wo NST 22344 IMPRESSION: 1. Biophysical profile score: 8/8. 2. Single intrauterine gestation of 35w6d and 07/05/2020. Based upon the first trimester ultrasound fetus is measuring approximately 2 1/2 weeks smaller than expected. 3. Estimated weight based on age at the 70th percentile. 4. Umbilical artery Doppler evaluation remains normal. Normal forward flow in the umbilical artery.
--- NOTE | 2020-06-06 08:54 | PM.DCS ---
Discharge Providers Date of Admission: 06/04/20 11:20 Date of Discharge: June 06, 2020 Attending Provider at Admission: Miguel Hurd MD Attending Provider at Discharge: Miguel Hurd MD Reason for Visit Reason for Visit: [facility] Hospital Course Hospital Course: Brigida Sales is a 24 year old at 35.4 weeks gestation by LMP consistent with 9-week ultrasound. Her is complicated by history of preeclampsia with severe features at 33 and 36 weeks gestation and prior pregnancies, chronic hypertension, history of IUFD at 33.3 weeks gestation, now with gestational hypertension and elevated S/D ratio and RI in the umbilical artery. The patient was admitted due to having mild headaches and seeing spots slightly more than she was previously in association with umbilical artery ultrasounds with the SD ratio and resistive index readings being significantly higher upon admission at 3.8 and .74 respectively at the insertion of the umbilicus at the abdomen. Because of this the patient was admitted for further observation. The patient had continuous monitoring and no concerning heart tones were noted and the patient had a category 1 tracing. The patient had biophysical profiles and further readings of her SD ratio and resistive index on the umbilical artery and these progressively improved during her stay. The patient was on strict bedrest other than bathroom privileges. The longer the patient was in the hospital the better these readings got including her blood pressures. I have had a lengthy discussion with the patient and her regarding the findings and believe that if she can be on strict bedrest at home, that it is possible to try this at home 1 more time, as long as she returns for daily testing. She is spoken with her mother who has agreed to live at her home and care for their children and take care of all other needs during that time. I have discussed the risks of being at home with them and that we cannot guarantee that the infant will do well. I also discussed that at this time things are looking very good and continuing inpatient treatment may not be necessary. The patient and her have opted to try treatment at home with close outpatient monitoring. If they have any concerns at all, they are to return to OB right away. All questions were answered. Physical Exam Narrative: EXAM NARRATIVE: General: Alert and oriented x3 Eyes: Pupils equal round and reactive to light and accommodation Mouth: Mucous membranes moist, pharynx non-erythematous Cardiac: Regular rate and rhythm without murmurs Lungs: Clear to auscultation bilaterally without wheezes, crackles or rhonchi Abdomen: Soft, non-tender, fundus consistent with gestational age Extremities: +1 pitting edema in the bilateral lower extremities. Brisk reflexes present. Discharge Data Data Completed and Pending: Completed Studies During Hospitalization Category Date Time Status US OB F/U with um b art Stat Ultrasound 06/03/20 15:35 Completed US OB BPP w o NST [id number] Routin e Ultrasound 06/04/20 07:00 Completed US OB BPP w o NST [id number] Routin e Ultrasound 06/06/20 07:20 Completed US OB limited 768 15 Routine Ultrasound 06/05/20 07:00 Completed Vitals: Last Vital Signs Temp 98.0 F 06/06/20 06:05 Pulse 97 06/06/20 08:51 Resp 16 06/06/20 06:05 BP 137/74 06/06/20 08:51 Pulse Ox 95 06/06/20 06:05 Discharge Plan Discharge Patient Disposition: Home Condition: Stable Prescriptions: Continued Vitamin 27 mg iron- 800 mcg Tablet 1 tab PO DAILY RF: 0 Discharge Orders: Discharge Order (Routine); Ordered 06/06/20 Ordered By: Miguel Hurd Referrals: Miguel Hurd MD [Physician] - 06/07/20 (As scheduled) Discharge Diet: Regular Discharge Activity: Bedrest Patient Instructions: Movement (DC), OB Undelivered Discharge Activity Restrictions/Additional Instructions: The patient needs to be on strict bedrest. She may get up to go to the bathroom and shower but nothing more. If her symptoms are worsening in any way, she needs return to OB for further evaluation. Return to OB tomorrow for NST and ultrasound. Discharge Date/Time: 06/06/20 09:42 Discharge Attestations Time Spent in Discharge Care*: greater than 30 min Quality Metrics Clinical Quality Measures During this hospital stay, did patient experience: None Coding Level of Care Code Acute Supervisor Lump Room for Osiris Wirght
== END 2020-06-06 09:42 | disposition home or self-care (01) | DRG 833 ==
LOC: OBGYN 06-05 07:59 → OPOB 06-05 07:59
PROVIDERS: Admitting Provider Family Medicine; Visit Provider Family Medicine
DX: O13.3 Gestational [pregnancy-induced] hypertension without significant proteinuria, third trimester (principal); Z3A.35 35 weeks gestation of pregnancy
CPT/HCPCS: 12345; 36415; 59025; 76815; 76816; 76819; 76820; 80053; 84156; 84550; 85025; 99211

== ENCOUNTER 2020-06-07 07:50 | Outpatient (CLI) | payer MEDICAID, SELFPAY ==
[2020-06-07 08:05] VITALS: BP 115/66; RESP 16; TEMP 36.6
--- NOTE | 2020-06-07 08:08 | US_ITS ---
WS: [id number] BIOPHYSICAL PROFILE UMBILICAL ARTERY EVALUATION HISTORY: Hypertension COMPARISON: 06/06/2020 Cardiac activity: 131 bpm. Cervix: closed. Placenta: Anterior, no previa or abruption. Placenta grade: 1 Normal amniotic fluid. Parameters are as follows: Breathin Movement: 2 Tone: 2 Fluid volume: 2 UMBILICAL ARTERY DOPPLER Waveform analysis: Normal systolic and diastolic velocities. Diastolic velocity remains above the bas laney. Normal upstroke of waveform. SD ratios: SD ratios range from 2.1-2.6 Resistivity indices: 0.52-0.61 US/US OB BPP wo NST w umb IMPRESSION: 1. Biophysical profile score: 8/8. 2. Normal umbilical artery Doppler.
[2020-06-07 08:12] VITALS: BMI 39.2
[2020-06-07 08:18] VITALS: BP 119/63; PULSE 91; RESP 17
[2020-06-07 08:34] VITALS: BP 128/73; PULSE 97
[2020-06-07 08:49] VITALS: BP 129/72; PULSE 90
[2020-06-07 09:04] VITALS: BP 115/72; PULSE 98
== END 2020-06-07 09:07 | disposition home or self-care (01) ==
LOC: OPOB 07:59 → OBGYN 08:00
PROVIDERS: Visit Provider Family Medicine
DX: O13.9 Gestational [pregnancy-induced] hypertension without significant proteinuria, unspecified trimester (principal); Z3A.00 Weeks of gestation of pregnancy not specified
CPT/HCPCS: 59025; 76819; 76820; 99211

== ENCOUNTER 2020-06-08 08:13 | Outpatient (CLI) | payer MEDICAID, SELFPAY ==
[2020-06-08] VITALS (9 sets, daily range): BP systolic 119–140; BP diastolic 58–72; PULSE 88–97; TEMP 36.7; BMI 39.2
--- NOTE | 2020-06-08 08:25 | US_ITS ---
WS: [id number] BIOPHYSICAL PROFILE UMBILICAL ARTERY DOPPLER HISTORY: gestational hypertension COMPARISON: 06/07/2020 Cardiac activity: 147 bpm. Cervix: closed. Placenta: Anterior, no previa. Placenta grade: 1 Parameters are as follows: Breathin Movement: 2 Tone: 2 Fluid volume: 2 UMBILICAL ARTERY DOPPLER Waveform analysis: Normal systolic and diastolic velocities. Diastolic velocity remains above the bas laney. Normal upstroke of waveform. SD ratios: SD ratios range from 2.3-2.8 Resistivity indices: 0.55-0.65 Largest vertical pocket of amniotic fluid is 4.8 cm. US/US OB BPP wo NST w umb IMPRESSION: 1. Biophysical profile score: 8/8. 2. Normal umbilical artery Doppler evaluation.
== END 2020-06-08 10:12 | disposition home or self-care (01) ==
LOC: OPOB 08:23 → OBGYN 08:24
PROVIDERS: Visit Provider Family Medicine
DX: O13.9 Gestational [pregnancy-induced] hypertension without significant proteinuria, unspecified trimester (principal); Z3A.00 Weeks of gestation of pregnancy not specified
CPT/HCPCS: 76819; 76820; 99211

== ENCOUNTER 2020-06-09 08:38 | Outpatient (CLI) | payer MEDICAID, SELFPAY ==
[2020-06-09] VITALS (13 sets, daily range): BP systolic 98–129; BP diastolic 53–78; PULSE 82–104; TEMP 36.6; BMI 39.2
--- NOTE | 2020-06-09 08:50 | US_ITS ---
WS: [id number] BIOPHYSICAL PROFILE UMBILICAL ARTERY EVALUATION HISTORY: gestational hypertension COMPARISON: 06/08/2020 Cardiac activity: 164 bpm. Cervix: closed. Placenta: Anterior, no previa or abruption. Placenta grade: 1 Parameters are as follows: Breathin Movement: 2 Tone: 2 Fluid volume: 2 UMBILICAL ARTERY DOPPLER Waveform analysis: Normal systolic and diastolic velocities. Diastolic velocity remains above the bas laney. Normal upstroke of waveform. SD ratios: SD ratios range from 1.6-1.7 Resistivity indices: 0.4 US/US OB BPP wo NST w umb IMPRESSION: 1. Biophysical profile score: 8/8. 2. Normal umbilical artery Doppler evaluation.
== END 2020-06-09 11:36 | disposition home or self-care (01) ==
LOC: OPOB 08:39 → OBGYN 08:40
PROVIDERS: PCP Family Medicine; Visit Provider Family Medicine
DX: O13.9 Gestational [pregnancy-induced] hypertension without significant proteinuria, unspecified trimester (principal); Z3A.00 Weeks of gestation of pregnancy not specified
CPT/HCPCS: 59025; 76819; 76820; 99211

== ENCOUNTER 2020-06-10 10:47 | Outpatient (CLI) | payer MEDICAID, SELFPAY ==
[2020-06-10] VITALS (8 sets, daily range): BP systolic 107–137; BP diastolic 68–70; PULSE 86–104; TEMP 36.7; BMI 39.2
--- NOTE | 2020-06-10 10:56 | USR_ITS ---
PROCEDURE INFORMATION: Exam: US Biophysical Profile Without Non-Stress Test Exam date and time: 06/10/2020 12:01 PM Age: 24 years old Clinical indication: Other: Gestational hypertension; TECHNIQUE: Imaging protocol: US biophysical profile without non-stress testing. COMPARISON: Multiple priors, most recent US OB BPP wo NST w umb 06/09/2020 11:03 AM FINDINGS: Single live IUP in vertex presentation. heart rate 164 bpm. Cervix 4.7 cm in length and closed. Placenta anterior with grade 2 echotexture. No evidence of abruption or previa. Deepest vertical pocket of amniotic fluid 6.9 cm, normal. BIOPHYSICAL PROFILE: Breathin/2 Gross body movements: 2/2 tone: 2/2 Qualitative amniotic fluid: 2/2 Biophysical Profile Score: 8/8 Umbilical artery Doppler: Normal systolic and diastolic velocities. Normal upstroke with Diastolic flow remaining above baseline. S/D ratios average 2.21 (range 2.0-2.6) PI average 0.86 (0.8-0.98) RI average 0.54 (0.50-0.61) US/US OB lm w fetalBPP woNST &umb IMPRESSION: 1. Biophysical profile score: 8/8. 2. Normal umbilical artery Doppler evaluation.
== END 2020-06-10 12:24 | disposition home or self-care (01) ==
LOC: OPOB 10:53 → OBGYN 10:53
PROVIDERS: PCP Family Medicine; Visit Provider Family Medicine
DX: O13.9 Gestational [pregnancy-induced] hypertension without significant proteinuria, unspecified trimester (principal); Z3A.00 Weeks of gestation of pregnancy not specified
CPT/HCPCS: 59025; 76815; 76819; 76820; 99211

== ENCOUNTER 2020-06-12 08:20 | Outpatient (CLI) | payer MEDICAID, SELFPAY ==
[2020-06-12 08:37] VITALS: BP 141/82; RESP 17; TEMP 36.4
[2020-06-12 08:51] VITALS: BMI 39.4
[2020-06-12 08:52] VITALS: BP 125/57; PULSE 97
--- NOTE | 2020-06-12 08:52 | US_ITS ---
WS: [id number] ULTRASOUND OB LIMITED TECHNIQUE: Limited ultrasound examination of the fetus. CLINICAL INFORMATION: Gestational Hypertension COMPARISON: None. FINDINGS: Cervix measures 4.9 cm Single interuterine gestation. presentation is vertex Placental location is anterior. Placenta grade: 0. heart rate 129 BPM. Normal SANDY 16.1cm Biophysical profile 8 out of 8. breathin movement: 2 tone: 2 Amniotic fluid: 2 US/US OB BPP wo NST w umb IMPRESSION: 1. Normal biophysical profile 8 out of 8 2. Normal SANDY. 3. Anterior placenta with vertex presentation. 4. Normal umbilical artery waveforms.
[2020-06-12 09:07] VITALS: BP 121/63; PULSE 96
[2020-06-12 09:22] VITALS: BP 125/60; PULSE 101
[2020-06-12 09:37] VITALS: BP 122/70; PULSE 96
== END 2020-06-12 09:52 | disposition home or self-care (01) ==
LOC: OPOB 08:32 → OBGYN 08:45
PROVIDERS: PCP Family Medicine; Visit Provider Family Medicine
DX: O13.4 Gestational [pregnancy-induced] hypertension without significant proteinuria, complicating childbirth (principal); Z3A.00 Weeks of gestation of pregnancy not specified
CPT/HCPCS: 59025; 76819; 76820; 99211

== ENCOUNTER 2020-06-13 08:12 | Outpatient (CLI) | payer MEDICAID, SELFPAY ==
--- NOTE | 2020-06-13 08:38 | US_ITS ---
WS: [id number] UMBILICAL ARTERY DOPPLER Waveform analysis: Normal systolic and diastolic velocities. Diastolic velocity remains above the bas laney. Normal upstroke of waveform. SD ratios: SD ratios range from 2.21-2.28 Resistivity indices: 0.55, 0.56. Anterior placenta. Cervix not well visualized. US/US OB F/U with umb art IMPRESSION: Normal umbilical artery Doppler
[2020-06-13 09:21] VITALS: BMI 39.6
[2020-06-13 09:30] VITALS: BP 121/67; PULSE 84
[2020-06-13 09:45] VITALS: BP 129/68; PULSE 96
[2020-06-14 14:02] LABS: Coronavirus Lab Test PTC Negative
== END 2020-06-13 10:00 | disposition home or self-care (01) ==
LOC: OPOB 08:34 → OBGYN 08:34
PROVIDERS: PCP Family Medicine; Visit Provider Family Medicine
DX: O13.9 Gestational [pregnancy-induced] hypertension without significant proteinuria, unspecified trimester (principal); Z3A.00 Weeks of gestation of pregnancy not specified; O14.10 Severe pre-eclampsia, unspecified trimester; O09.299 Supervision of pregnancy with other poor reproductive or obstetric history, unspecified trimester
CPT/HCPCS: 59025; 76816; 76820; 87635; 99211

== ENCOUNTER 2020-06-15 09:00 | Outpatient (CLI) | payer MEDICAID, SELFPAY ==
[2020-06-15 09:21] VITALS: BP 134/71; PULSE 90; RESP 18; TEMP 36.6
--- NOTE | 2020-06-15 09:21 | US_ITS ---
WS: [id number] OB ultrasound, emphasis on umbilical artery flow, 06/15/2020 Clinical Data: HISTORY OF Comparison: OB ultrasound, 06/13/2020. Findings: There is a single intrauterine in the vertex presentation. The placenta is Anterior and gra de 2. There is a normal amount of amnionic fluid. The heart rate is 133 beats per minute. SD ratios vary from 2.05-2.31. The RI varies from 0.51-0.57. US/US OB F/U with umb art Impression: 1. Single intrauterine in vertex presentation. 2. Normal umbilical artery Doppler. 3. heart rate 133 beats per minute.
[2020-06-15 09:40] VITALS: BMI 39.6
[2020-06-15 09:52] VITALS: BP 140/64; PULSE 96
[2020-06-15 10:13] VITALS: BP 125/64; PULSE 91
== END 2020-06-15 10:20 | disposition home or self-care (01) ==
LOC: OPOB 09:11 → OBGYN 09:12
PROVIDERS: PCP Family Medicine; Visit Provider Family Medicine
DX: O26.899 Other specified pregnancy related conditions, unspecified trimester (principal); Z3A.00 Weeks of gestation of pregnancy not specified; R10.9 Unspecified abdominal pain
CPT/HCPCS: 59025; 76816; 76820

== ENCOUNTER 2020-06-16 05:10 | Inpatient (IN) | payer MEDICAID, SELFPAY ==
[2020-06-16] VITALS (31 sets, daily range): BP systolic 101–147; BP diastolic 57–85; PULSE 76–106; RESP 15–18; TEMP 36.2–37; O2SAT 94–98; BMI 39.6
[2020-06-16] MEDS: lactated ringers 1,000 ML 999 ML IV (06:06)
[2020-06-16 06:11] LABS: Basophils % 0.2 %; Eosinophils # 0.1 10^3/uL (0.0-0.8); Eosinophils % 0.9 %; Hematocrit 37.6 % (37.0-47.0); Hemoglobin 12.1 g/dL (11.5-15.3); Lymphocytes # 1.9 10^3/uL (0.8-4.8); Lymphocytes % 22.3 %; Mean Corpuscular HGB Conc 32.2 g/dL (30.0-36.0); Mean Corpuscular Volume 90.2 fL (81-99); Mean Platelet Volume 9.5 fL (7.4-10.4); Monocytes # 0.6 10^3/uL (0.2-0.9); Monocytes % 6.7 %; Neutrophils # 6.01 10^3/uL (1.8-7.7); Nucleated Red Blood Cells % 0 %; Platelet Count 210 10^3/cmm (130-400); Red Blood Count 4.17 10^6/uL (4.1-5.3); Red Cell Distribution Width 14.6 % (12.1-15.1); White Blood Count 8.7 10^3/uL (4.0-10.0)
[2020-06-16] MEDS: famotidine 20 mg/2 mL INJ IVP (07:00)
[2020-06-16] MEDS: citric acid-sodium citrate 30 mL UDC PO (07:00)
[2020-06-16] MEDS: metoclopramide 5 mg/mL SDV 2 mL 10 MG IVP (07:01)
[2020-06-16] MEDS: lactated ringers 1,000 ML 125 ML IV (07:08)
--- NOTE | 2020-06-16 07:18 | PC.NURSE ---
Pt to OR at this time
--- NOTE | 2020-06-16 08:00 | PC.NURSE ---
Pt is in OR at this time
[2020-06-16] MEDS: magnesium sulfate premix 4 GM/100 ML PREMIX IV (08:56)
[2020-06-16] MEDS: magnesium sulfate premix 20 GM/500 ML BAG IV ×2 (09:16→23:11)
--- NOTE | 2020-06-16 09:26 | PM.HP ---
Providers/Chief Complaint Admitting Physician: Miguel Hurd MD Primary Care Provider: Miguel Hurd MD Chief Complaint: CSECTION History of Present Illness Brigida Sales is a 24 year old -1-0-1 at 37.0 weeks gestation by LMP consistent with 9-week ultrasound. Her is complicated by history of preeclampsia with severe features at 33 and 36 weeks, gestational hypertension with intermittent severe features, history of IUFD at 33.3 weeks gestation, history of low transverse section, currently with borderline and elevated SD ratios and resistive index ratios of the umbilical artery. The patient has had a complicated with blood pressures that had gotten up into the 150s and occasional 160s systolic starting around 33 weeks gestation. She had associated headaches, flashes of light and borderline umbilical artery Doppler flows. The patient was admitted for observation and with bedrest her blood pressures improved as well as her umbilical artery flow and symptoms. The patient had significant symptoms that gradually improved with strict bedrest. The patient was monitored quite closely throughout the with ultrasounds and NSTs and in conjunction with perinatology at [facility] in [place], it was decided that it would be best to deliver the at 37.0 weeks gestation. The patient presents for this planned section. She currently has minimal headache and is not seeing spots. Her blood pressures have been better at home in the 130s systolic. She denies any chest pains, shortness of breath, nausea, vomiting, dysuria, leakage of fluid, vaginal bleeding, fever. She had a negative COVID screen test on 06/13/2020. Medications/Allergies Home Medications Medication Instructions Recorded Confirmed Last Taken Type Vitamin 1 tab PO DAILY 05/05/20 06/16/20 06/15/20 09:00 History Allergies Allergy/AdvReac Type Severity Reaction Status Date / Time No Known Allergies Allergy Verified 06/16/20 06:13 PFSH Acute PFSH: Medical History (Updated 06/16/20 @ 09:34 by Miguel Hurd MD) History of stillbirth Surgical History History of appendectomy History of tonsillectomy and adenoidectomy Hx of cholecystectomy Previous section Female Reproductive History: : 3 Vitals/I&O/Wt Last Vital Signs Temp 98.0 F 06/16/20 05:22 Resp 16 06/16/20 05:22 06/15/20 06/16/20 06/16/20 22:59 06:59 14:59 Intake Total 20.833 / 20.833 Balance 20.833 / 20.833 Weight last 48 hrs Weight 203 lb Weight 203 lb Physical Exam Narrative: EXAM NARRATIVE: General: Alert and oriented x3 Eyes: Pupils equal round and reactive to light and accommodation Mouth: Mucous membranes moist, pharynx non-erythematous Cardiac: Regular rate and rhythm without murmurs Lungs: Clear to auscultation bilaterally without wheezes, crackles or rhonchi Abdomen: Soft, non-tender, fundus consistent with gestational age Extremities: +1 pitting edema in the bilateral lower extremities, brisk bilateral deep tendon reflexes. Urinary Catheter Management^: Nieto: Cath Placed During This Visit: yes Urinary Catheter Date of Insertion: 06/16/20 Urinary Catheter Time of Insertion: 07:28 Data : 06/16/20 05:50 A&P Assessment and plan (1) Intrauterine : Status: Acute (2) Gestational hypertension: Status: Acute (3) History of stillbirth: Status: Acute Additional A&P Information Brgiida Sales is a 24 year old -1-0-1 at 37.0 weeks gestation by LMP consistent with 9-week ultrasound. Her is complicated by history of preeclampsia with severe features at 33 and 36 weeks, gestational hypertension with intermittent severe features, history of IUFD at 33.3 weeks gestation, history of low transverse section, currently with borderline and elevated SD ratios and resistive index ratios of the umbilical artery. The patient is currently feeling well. We will proceed with planned repeat low-transverse section. All questions were answered. We discussed the possibility of the infant having some issues due to prematurity. The patient will need to be on magnesium for seizure prophylaxis. Both patient and are in agreement with current plan of care. All questions were answered. Attestations Medical Necessity Statement*: The patient will be here for greater than 2 midnights due to routine intrapartum and management of section. Coding Level of Care Code Acute Floor Coverer Apprentice for Chg Fwd Diagnoses Intrauterine Z34.90 Gestational hypertension O13.9 History of stillbirth Z87.59
--- NOTE | 2020-06-16 09:26 | PM.OP ---
Operative Report Date of procedure: June 16, 2020 Pre-op Diagnosis: IUP Pre-op Diagnosis: 1. Intrauterine at 37.0 weeks gestation 2. Gestational hypertension with intermittent severe features 3. Elevated SD ratios and resistive index in the umbilical artery 4. History of preeclampsia with severe features 5. History of stillbirth at 33 weeks gestation 6. Prior low-transverse section 7. Patient requesting bilateral tubal ligation Post-op Diagnosis: 1. Intrauterine status post repeat low transverse section with bilateral tubal ligation at 37.0 weeks gestation 2. Gestational hypertension with intermittent severe features 3. Elevated SD ratios and resistive index in the umbilical artery 4. History of preeclampsia with severe features 5. History of stillbirth at 33 weeks gestation 6. Delivery of healthy male weighing 5 pounds 13 ounces with Apgars of 9 and 9 Post-op Findings: 1. Delivery of healthy male weighing 5 pounds 13 ounces with Apgars of 9 and 9 2. Intact placenta with a central umbilical cord insertion site Procedure Done: Repeat low transverse section with bilateral tubal ligation Specimens removed/disposition: Placenta discarded Pathology: none sent Surgeon: Miguel Hurd Anesthesia: Other (Spinal) Estimated blood loss (mL): 800 IV fluids (mL): 1,200 Urine output (mL): 400 Complications: None Condition: stable Brief History: Brigida Sales is a 24 year old G3 now P2-1-0-2 at 37.0 weeks gestation by LMP consistent with 9-week ultrasound. Her is complicated by history of preeclampsia with severe features at 33 and 36 weeks, gestational hypertension with intermittent severe features, history of IUFD at 33.3 weeks gestation, history of low transverse section, currently with borderline and elevated SD ratios and resistive index ratios of the umbilical artery. The patient has had a complicated with blood pressures that had gotten up into the 150s and occasional 160s systolic starting around 33 weeks gestation. She had associated headaches, flashes of light and borderline umbilical artery Doppler flows. The patient was admitted for observation and with bedrest her blood pressures improved as well as her umbilical artery flow and symptoms. The patient had significant symptoms that gradually improved with strict bedrest. The patient was monitored quite closely throughout the with ultrasounds and NSTs and in conjunction with perinatology at [facility] in [place], it was decided that it would be best to deliver the infant at 37.0 weeks gestation. The patient presents for this planned section. She currently has minimal headache and is not seeing spots. Her blood pressures have been better at home in the 130s systolic. She denies any chest pains, shortness of breath, nausea, vomiting, dysuria, leakage of fluid, vaginal bleeding, fever. She had a negative COVID screen test on 06/13/2020. Procedure: After informed consent was obtained, the patient was taken to the operating room and the patient was prepped and draped in a normal sterile fashion in the dorsal supine position. A spinal epidural was placed and adequate anesthesia was confirmed. At 7:34 AM on 06/16/2020, a Pfannenstiel skin incision was made and carried through to the underlying layer of fascia using a scalpel. The fascial incision was then extended laterally using curved Mayos. The fascia was then grasped with Isiah clamps and the underlying rectus muscles were dissected off taking care to avoid injury to the underlying tissues. The peritoneum was entered bluntly with one digit. It was then bluntly. The bladder blade was placed and the vesicouterine peritoneum was well below the lower uterine segment of the uterus. The uterine incision was made in the lower uterine segment in a transverse fashion with the scalpel at 7:30 AM. The amniotic membrane was entered bluntly and a small amount of clear fluid was noted. The infant's head delivered atraumatically without difficulty at 7:39 AM on 06/16/2020. There was no nuchal cord. The mouth and nose were suctioned. The rest of the delivered without difficulty. The was crying immediately upon delivery. The cord was clamped and cut and the infant was handed to the awaiting pediatric nurses. The placenta was then manually expressed. The uterus was then exteriorized from the abdomen and a wet lap was used to clear the uterus of clots and debris. The bladder blade was reinserted and the uterine incision was closed using 0 chromic in a running locking fashion. A second layer of the same suture was used in the same manner. Excellent hemostasis was obtained. The patient's bilateral tubes were then inspected. A modified [place] technique was used to carry out the tubal ligation. The right fallopian tube was held up using Babc[place] and a window was made underneath the right fallopian tube using cautery. 2-0 plain was used to tie off the right fallopian tube and a portion of the tube was removed using Metzenbaums. The exposed tube was cauterized. Excellent hemostasis was noted. The left fallopian tube was removed in the same manner. Next the posterior cul-de-sac was inspected and was cleared of any blood. The uterus was then placed back into the abdomen. The gutters were cleared of any further clots and debris and the uterine incision was again inspected and hemostasis was noted. The subfascial tissue was inspected for hemostasis and the peritoneum was re-approximated using 2-0 plain in a running fashion. The fascia was then re-approximated using 0 Vicryl in a running fashion. The subcutaneous tissue was inspected for hemostasis. Kia's fascia was then re-approximated using 3-0 plain in a running fashion. Good hemostasis was noted. The subcutaneous tissue was then re-approximated using a subcuticular stitch. The patient tolerated the procedure well and was recovered in stable condition. Estimated blood loss was 800 mL. Urine in the Nieto catheter was clear. The patient was taken to recovery in good condition.
--- NOTE | 2020-06-16 09:50 | PM.PACU ---
PACU note Post-Anesthesia Exam: awake and vital signs stable Disposition: admitted
[2020-06-16] MEDS: ketorolac 30 mg/mL INJ IVP ×2 (15:25→21:19)
[2020-06-16 16:20] LABS: Magnesium Level (OB Only) 4.8 mg/dL (5.0-7.5)
[2020-06-16] MEDS: dextrose 5%-lactated ringers 1,000 ML 75 ML IV (18:32)
[2020-06-16 21:55] LABS: Hematocrit 34.9 % (37.0-47.0); Hemoglobin 11.3 g/dL (11.5-15.3); Mean Corpuscular HGB Conc 32.4 g/dL (30.0-36.0); Mean Corpuscular Hemoglobin 28.8 pg (28.0-34.0); Mean Corpuscular Volume 88.8 fL (81-99); Mean Platelet Volume 9.8 fL (7.4-10.4); Platelet Count 215 10^3/cmm (130-400); Red Blood Count 3.93 10^6/uL (4.1-5.3); Red Cell Distribution Width 14.2 % (12.1-15.1)
[2020-06-16 22:20] LABS: Magnesium Level (OB Only) 5.2 mg/dL (5.0-7.5)
--- NOTE | 2020-06-16 23:12 | PC.NURSE ---
magnesium verified by Shawna Bettencourt RN
[2020-06-17] VITALS (11 sets, daily range): BP systolic 98–144; BP diastolic 53–81; PULSE 74–107; RESP 14–18; TEMP 36.4–36.7; O2SAT 95–98
[2020-06-17] MEDS: ketorolac 30 mg/mL INJ IVP (03:23)
[2020-06-17 04:06] LABS: Magnesium Level (OB Only) 5.8 mg/dL (5.0-7.5)
--- NOTE | 2020-06-17 08:11 | PM.PN ---
Subjective Subjective: Interval history: The patient is feeling well at this time. She did have some nausea and vomiting after delivery yesterday. The patient has not passed gas yet. The patient's pain is well controlled. She does have some itching. Vitals/I&O/Wt Last Vital Signs Temp 98.1 F 06/17/20 07:32 Pulse 93 06/17/20 07:32 Resp 16 06/17/20 07:32 BP 101/62 06/17/20 07:32 Pulse Ox 95 06/17/20 07:32 06/16/20 06/17/20 06/17/20 22:59 06:59 14:59 Intake Total 500 / 2700.000 Output Total 735 / 3453 1265 / 4718 110 / 110 Balance -235 / -753.000 -1265 / -2018.000 -110 / -110 Weight last 48 hrs Weight 203 lb Weight 203 lb Physical Exam Narrative: EXAM NARRATIVE: General: Alert and oriented x3 Cardiac: Regular rate and rhythm without murmurs Lungs: Clear to auscultation bilaterally without wheezes, crackles or rhonchi Abdomen: Soft, mild diffuse tenderness. Uterus is 2 cm below the umbilicus. Incision has minimal oozing from the right of center incision site. No dehiscence noted. Extremities: Trace pitting edema in the bilateral lower extremities, brisk bilateral deep tendon reflexes. Urinary Catheter Management^: Nieto: Cath Placed During This Visit: yes Reason for Continuing Indwelling Catheter: Accurate Measurement of Urinary Output in Critically Ill Patients Urinary Catheter Date of Insertion: 06/16/20 Urinary Catheter Time of Insertion: 07:28 Data : 06/16/20 21:18 A&P Assessment and plan (1) Intrauterine : Status: Acute (2) Gestational hypertension: Status: Acute (3) History of stillbirth: Status: Acute Additional A&P Information Brigida Sales is a 24 year old G3 now P2-1-0-2 status post repeat low transverse section with bilateral tubal ligation at 37.0 weeks gestation by LMP consistent with 9-week ultrasound. Her was complicated by history of preeclampsia with severe features at 33 and 36 weeks, gestational hypertension with intermittent severe features, history of IUFD at 33.3 weeks gestation, history of low transverse section, currently with borderline and elevated SD ratios and resistive index ratios of the umbilical artery. The patient is currently feeling well. We will plan to discontinue the IV magnesium. We will start ambulating the patient. Once she is passing gas we will plan to start food by mouth. Her pain is currently well controlled. Her bleeding is small. We will place another bandage over the incision site due to the mild oozing. No signs of significant complication at this time. All questions were answered. Attestations Medical Necessity Statement*: The patient will be here for greater than 2 midnights due to intrapartum and management of section. Coding Level of Care Code Acute Social Media Manager for Chg Fwd Diagnoses Intrauterine Z34.90 Gestational hypertension O13.9 History of stillbirth Z87.59
[2020-06-17] MEDS: docusate sodium 100 mg Capsule PO ×2 (09:39→18:03)
[2020-06-17] MEDS: prenatal vitamin Capsule 1 CAP PO (09:39)
--- NOTE | 2020-06-17 12:38 | PC.NURSE ---
Patient up to ambulate OBGYN floor x 2. Patient tolerates activity well. Catheter removed. AR RN
--- NOTE | 2020-06-17 14:21 | ANE.PACU2 ---
Inpatient post-anesthesia follow up: Airway intact: Yes Vital signs: Temperature 97.5 F Pulse Rate 86 Respiratory Rate 14 Blood Pressure 104/66 Pulse Oximetry 96 Oxygen Delivery Me thod Room Air Oxygen Flow Rate Fraction of Inspir ed Oxygen Hydration adequate: Yes Nausea and vomiting: No Pain level: 2 Mental status: Baseline Additional Comments: no signs of infection at neuraxial site, up and walking with no residual numbness/weakness, no headaches, urinating without gamboa
[2020-06-18 05:15] VITALS: BP 108/69; PULSE 80; RESP 16; TEMP 36.7; O2SAT 96
--- NOTE | 2020-06-18 08:38 | P.DS_ITS ---
Discharge Providers Date of Admission: 06/16/20 05:10 Date of Discharge: June 18, 2020 Attending Provider at Admission: Miguel Hurd MD Attending Provider at Discharge: Miguel Hurd MD Primary Care Provider: Miguel Hurd MD Diagnoses at Discharge Discharge Diagnosis (1) Intrauterine : Status: Acute (2) Gestational hypertension: Status: Acute (3) History of stillbirth: Status: Acute Reason for Visit Reason for Visit: CSECTION Hospital Course Hospital Course: Brigida Sales is a 24 year old G3 now P2-1-0-2 at 37.0 weeks gestation by LMP consistent with 9-week ultrasound. Her was complicated by history of preeclampsia with severe features at 33 and 36 weeks, gestational hypertension with intermittent severe features, history of IUFD at 33.3 weeks gestation, history of low transverse section, currently with borderline and elevated SD ratios and resistive index ratios of the umbilical artery. The patient had a scheduled repeat low-transverse section with bilateral tubal ligation secondary to the above. The patient has done very well . She was placed on IV magnesium for 24 hours and had no complications. Her blood pressures are improving well. The patient is now ambulating, voiding, passing gas and tolerating food by mouth. Her pain is well controlled. The patient is showing no signs of complications and is ready for discharge home. We will plan to discharge her home this afternoon. All questions were answered. Routine post and gestational hypertension discharge instructions were given. They will plan to follow-up with me later this week. Physical Exam Narrative: EXAM NARRATIVE: General: Alert and oriented x3 Cardiac: Regular rate and rhythm without murmurs Lungs: Clear to auscultation bilaterally without wheezes, crackles or rhonchi Abdomen: Soft, mild diffuse tenderness. Uterus is 2 cm below the umbilicus. Incision is clean and dry without signs of infection or dehiscence. Extremities: Trace pitting edema in the bilateral lower extremities, brisk bilateral deep tendon reflexes. Urinary Catheter Management^: Nieto: Cath Placed During This Visit: yes Reason for Continuing Indwelling Catheter: Accurate Measurement of Urinary Output in Critically Ill Patients Urinary Catheter Date of Insertion: 06/16/20 Urinary Catheter Time of Insertion: 07:28 Discharge Data Data Completed and Pending: Pending at discharge Category Date Time Status Pathology: Surgic al [PTH] Routine Pth 06/16/20 10:31 Ordered Vitals: Last Vital Signs Temp 98.1 F 06/18/20 05:15 Pulse 80 06/18/20 05:15 Resp 16 06/18/20 05:15 BP 108/69 06/18/20 05:15 Pulse Ox 96 06/18/20 05:15 Discharge Plan Discharge Patient Disposition: Home Condition: Good Prescriptions: New oxycodone-acetaminophen 5-325 mg Tablet 1 tab PO Q6H PRN (Reason: Moderate To Severe Pain) Qty: 10 RF: 0 ferrous sulfate 325 mg (65 mg iron) Tablet,Delayed Release (Dr/Ec) 325 mg PO BIDWM Qty: 30 RF: 0 ibuprofen 800 mg Tablet 800 mg PO TID Qty: 60 RF: 0 Continued Vitamin 27 mg iron- 800 mcg Tablet 1 tab PO DAILY RF: 0 Discharge Orders: Discharge Order (Routine); Ordered 06/18/20 Ordered By: Miguel Hurd Referrals: Miguel Hurd MD [Primary Care Provider] - 06/19/20 3:30 pm Discharge Diet: Regular Discharge Activity: Limit activity as instructed Activity Restrictions/Additional Instructions: Do not lift anything heavier than your in the car seat for the first 3 weeks, then gradually increase. If you have any concern for infection in your incision site please contact Dr. Hurd right away. Nothing per vagina for 6 weeks. Keep activity levels low for the next week then gradually increase. Keep benign your blood pressure and let Dr. Hurd know if these are starting to increase again. Discharge Attestations Time Spent in Discharge Care*: greater than 30 min Quality Metrics Clinical Quality Measures During this hospital stay, did patient experience: None Coding Level of Care Code Acute Assembly Technician for Chg Fwd Diagnoses Intrauterine Z34.90 Gestational hypertension O13.9 History of stillbirth Z87.59
[2020-06-18] MEDS: prenatal vitamin Capsule 1 CAP PO (09:59)
[2020-06-18] MEDS: docusate sodium 100 mg Capsule PO (09:59)
[2020-06-18 10:01] VITALS: BP 123/79; PULSE 86; RESP 16; TEMP 36.8; O2SAT 97
[2020-06-18 12:32] VITALS: BP 106/64; PULSE 96; RESP 16; TEMP 36.4; O2SAT 97
== END 2020-06-18 12:34 | disposition home or self-care (01) | DRG 785 ==
LOC: OPOB 05:10 → OBGYN 08:01
PROVIDERS: Admitting Provider Family Medicine; PCP Family Medicine; Visit Provider Family Medicine
PROC: (CPT 59514; principal; 2020-06-16 07:00)
DX: O14.14 Severe pre-eclampsia complicating childbirth (principal); O13.4 Gestational [pregnancy-induced] hypertension without significant proteinuria, complicating childbirth; Z3A.37 37 weeks gestation of pregnancy; Z37.0 Single live birth; O34.211 Maternal care for low transverse scar from previous cesarean delivery; N85.8 Other specified noninflammatory disorders of uterus; Z30.2 Encounter for sterilization
CPT/HCPCS: 12345; 36415; 51702; 58611; 59025; 59409; 83735; 85025; 85027; 86850; 86900; 88302; 96375; 98960; J0690; J1100; J1885; J2274; J2405; J2765; J3475; J3490; J7030

== ENCOUNTER → 2023-05-14 10:24 | Outpatient (BNVA) | payer OTHER, SELFPAY | PROVIDERS: PCP Family Medicine; Visit Provider Nurse Practitioner Women's Health | DX: N92.0 Excessive and frequent menstruation with regular cycle (principal) | CPT/HCPCS: 76830 ==

== ENCOUNTER → 2023-05-16 13:30 | Outpatient (BNVA) | payer OTHER, SELFPAY | PROVIDERS: PCP Family Medicine; Visit Provider Obstetrics & Gynecology | DX: N94.6 Dysmenorrhea, unspecified (principal); N92.0 Excessive and frequent menstruation with regular cycle | CPT/HCPCS: 83001; 84146; 84443; 85025 ==

== ENCOUNTER 2023-06-12 14:07 | Outpatient (CLI) | payer OTHER, MEDICAID, SELFPAY ==
--- NOTE | 2023-06-12 14:14 | US_ITS ---
WS: [id number] ULTRASOUND BREAST BILATERAL TECHNIQUE: Ultrasound bilateral breast focused area of concern. CLINICAL INFORMATION: RT BR LUMP. LT BR DIMPLE COMPARISON: None. FINDINGS: RIGHT BREAST: Ultrasound RIGHT breast area of concern at the 4 o'clock position. Normal underlying pa renchymal tissue. No cystic or solid lesions. No suspicious lesions to target for biopsy. LEFT BREAST: Ultrasound LEFT breast at the 3 o'clock position in the area of concern. Normal underlyi ng parenchymal tissue. No cystic or solid lesions. No suspicious lesions to target for biopsy. IMPRESSION: No suspicious findings in the areas of concern. Recommend annual screen mammography age 40. BI-RADS 2 benign
== END 2023-06-12 14:08 | disposition home or self-care (01) ==
PROVIDERS: PCP Family Medicine; Visit Provider Nurse Practitioner Women's Health
DX: N63.14 Unspecified lump in the right breast, lower inner quadrant (principal); N63.25 Unspecified lump in the left breast, overlapping quadrants
CPT/HCPCS: 76642